=== PATIENT | male | born 1990 | race Hispanic/Latino ===

== ENCOUNTER → 2022-02-24 13:46 | Outpatient (CLI) | payer OTHER, SELFPAY ==
[2022-02-24 14:51] LABS: COVID19 -Nasal RAPID Negative (Negative)
== END ==
PROVIDERS: Visit Provider Surgery
DX: Z01.812 Encounter for preprocedural laboratory examination (principal); Z20.822 Contact with and (suspected) exposure to COVID-19
CPT/HCPCS: 87635; C9803

== ENCOUNTER 2022-02-27 09:56 | Day surgery (SDC) | payer OTHER, SELFPAY ==
--- NOTE | 2022-02-27 | PATH_ITS ---
[facility] Accession Number: [id number] . 01 Material submitted: . PART A: duodenum - DUODNEUM PART B: stomach - ANTRUM PART C: colon - RANDOM COLON . 01 Diagnosis: A. Duodenum, Biopsy: Small bowel mucosa with no diagnostic abnormality. Negative for active inflammation, dysplasia, and malignancy. . B. Antrum, Biopsy: Gastric antral mucosa with with mild chronic inflammation. Negatve for Helicobacter organisms by immunohistochemistry. Positive for a small focus of intestinal metaplasia. Negative for dysplasia or malignancy. . C. Random Colon: Colonic mucosa with no diagnostic abnormality. Negative for active, chronic, and microscopic colitis. Negative for dysplasia and malignancy. [facility] 03/03/2022 1451 Local . 01 Electronically signed: . Silvia Little MD, Pathologist NPI- [id number] . 01 Gross description: . Part A: DUODNEUM: Received in formalin are 4 fragment(s) of brownlee, soft tissue measuring 0.4 x 0.3 x 0.2 cm to 0.2 x 0.2 x 0.2 cm submitted entirely in 1 cassette(s) Part B: ANTRUM: Received in formalin is 1 fragment(s) of brownlee, soft tissue measuring 0.3 x 0.3 x 0.2 cm submitted entirely in 1 cassette(s) Part C: RANDOM COLON: Received in formalin are 3 fragment(s) of brownlee, soft tissue measuring 0.3 x 0.3 x 0.2 cm to 0.2 x 0.1 x 0.1 cm submitted entirely in 1 cassette(s) /QBJ 02/28/2022 0815 Local . 01 Microscopic: . B. An immunohistochemical stain was performed to evaluate for Helicobacter organisms and is negative. The control stain showed appropriate reactivity. . * This test was developed and its performance characteristics determined by [facility]. It has not been cleared or approved by the U.S. Food and Drug Administration. The FDA has determined that such clearance or approval is not necessary. This test is used for clinical purposes. It should not be regarded as investigational or for research. . 01 Pathologist provided ICD-10: R12, K06.8, K62.5, R19.7 . 01 CPT . 229029, 285841, 487175, [id number] Performed at: 01 [facility] [address] [place] [address], [place], [place] [id number] MD Jesús Dalal MD Phone: [phone]
[2022-02-27 10:20] VITALS: BP 138/84; PULSE 72; RESP 16; TEMP 36.6; O2SAT 96; BMI 35.9
[2022-02-27] MEDS: SODIUM CHLORIDE 0.9% 1,000 ML 150 ML IV (10:33)
--- NOTE | 2022-02-27 10:37 | PM.HP.1 ---
History of Present Illness History of Present Illness Date Patient Seen: 02/27/22 Time Patient Seen: 10:38 Chief complaint: SDC Narrative: I reviewed the office note from November 11, [address] Javier Black. No significant changes today. Patient History Medical History Bleeding gums Chronic diarrhea GERD (gastroesophageal reflux disease) Rectal bleeding Family & Social History Social History: household members spouse Tobacco & Substance use: Smoking Status Current every day smoker alcohol intake frequency a few times a month Substance Use Type does not use Meds Home Medications and Allergies Home Medications Medication Instructions Recorded Confirmed Type omeprazole 20 mg capsule,delayed 20 mg PO DAILY 02/24/22 02/27/22 History release Allergies Allergy/AdvReac Type Severity Reaction Status Date / Time nickel Allergy Rash, Verified 02/27/22 10:09 itchy, skin peeling Review of Systems Review of Systems ROS: Yes All systems reviewed with the patient and are negative except as otherwise documented Exam Vital Signs (past 8 hours): - 02/27/22 10:20 Temperature 97.8 F Pulse Rate 72 Respiratory Rate 16 Blood Pressure 138/84 Pulse Oximetry 96 Oxygen Delivery Method Room Air Const General: cooperative and comfortable Orientation: alert HENMT Head: normocephalic Ears: external ears normal Nose: external nose normal Face and sinus: normal facial exam Mouth: oral mucosae normal Eyes General: appearance normal, both eyes and all related structures Neck Neck: normal visual inspection Chest Chest: normal inspection of the chest Resp Effort & Inspection: normal respiratory effort Cardio Rate: regular rate GI Inspection: normal to inspection Skin General: no rashes or lesions noted and No jaundice Neuro General: patient alert and moves all extremities Cognition: normal cognition Speech: speech normal Extrem General: no pedal edema Psych Appearance: grossly normal Assessment & Plan Assessment & Plan narrative: This is a 31-year-old male with a chronic history of GERD, bad breath, diarrhea, intermittent rectal bleeding. EGD and colonoscopy are pursued today. Time Spent With Patient Critical Care time: I spent a total of [] minutes of critical care time on this patient's care today; this time is exclusive of procedural time.
--- NOTE | 2022-02-27 10:40 | PM.PREOP ---
Pre-operative Note COVID-19 COVID-19 status: Negative Result date/Date tested (Pos, Neg/Pending): 02/24/22 Criteria for continued procedure: Possibility delay results in more complex future surgery or treatment Interval Note History & Physical reviewed/Exam performed by Physician: Yes Changes to H&P: No ASA Class (for procedural sedation): II
--- NOTE | 2022-02-27 11:43 | PM.OP.EC ---
Operative Date/Time/Diagnoses Date of procedure: 02/27/22 Time of procedure: 11:43 Pre-op diagnosis: GERD bad breath diarrhea rectal bleeding Post-op diagnosis: same Procedure & Clinicians Study performed: EGD with biopsies and colonoscopy with biopsies Same procedure as scheduled: Yes Indications: GERD bad breath diarrhea rectal bleeding Surgeon: Chris Madrid Procedure Notes SCOAP/Timeout: Done Procedure in detail: After the risks and benefits were explained, written and verbal informed consent was obtained. The patient was brought into the procedure room and placed into the left lateral decubitus position. Please see nurse flame hardening machine setter notes for sedation details. The scope was introduced into the mouth through the bite block and advanced under direct visualization to the 2nd portion of the duodenum. The scope was slowly withdrawn carefully examining the mucosa for any defects or lesions. Retroflexed views were accomplished in the stomach. The stomach was decompressed, the scope was then removed from the patient who tolerated the procedure well. The patient was then turned around a digital rectal examination accomplished. No significant pathology appreciated. The scope was introduced into the rectum and advanced to the cecum as identified by the appendiceal orifice and ileocecal valve. The terminal ileum was interrogated. The scope was then slowly withdrawn to carefully examine the mucosa for any defects or lesions. Multiple direct views were made through the dentate line for exclusion of pathology the colon was decompressed scope removed from the patient who tolerated the procedure well. Adult colonoscope Bowel prep adequate Scope withdrawal time: 11 minutes Sedation minutes: 29 Complications: none Impression: 1. Duodenum: This was visually normal from the bulb through to the 2nd portion. Random biopsies were taken from D2 for exclusion of sprue. 2. Stomach: Patient had a mild gastropathy and biopsies were acquired from the antrum for exclusion of Helicobacter or other pathology. Otherwise retroflexed views of the LES were unremarkable. No ulcers no outlet obstruction no mass lesions appreciated throughout. 3. Esophagus: The squamocolumnar junction correlated with the top of the gastric folds. GE junction was at approximately 40 cm from the incisors. The patient had evidence of LA grade a erosive esophagitis. No stricturing no mass lesions. No suggestion of Barretts. The remainder of the esophagus was unremarkable. 4. Terminal ileum: This was visually within normal limits. No erosions no ulcerations no strictures. 5. Colon: No evidence of any macroscopic colitis throughout. No evidence of proctitis. There was some subtle mild colonic erythema throughout the mid colon of uncertain clinical significance. Random colon biopsies were acquired and bites were included from this location. No significant polyps mass lesions or additional pathology appreciated throughout. The patient had evidence of grade 1 internal hemorrhoids. Endoscopic diagnosis 1. Mild gastropathy 2. LA grade A erosive esophagitis. 3. Grade 1 hemorrhoids 4. Otherwise visually unremarkable colonoscopy and terminal ileoscopy. Post-procedure Plan for aftercare: 1. Await histopathology. 2. Consider increasing omeprazole to twice daily. 3. Follow up GI clinic with Dr. Javier Black. Disposition: PACU
[2022-02-27 11:45] VITALS: BP 120/80; PULSE 77; RESP 16; TEMP 36.2; O2SAT 94
[2022-02-27 11:50] VITALS: BP 126/80; PULSE 77; RESP 16; O2SAT 98
[2022-02-27 11:56] VITALS: BP 116/76; PULSE 80; RESP 16; O2SAT 96
[2022-02-27 12:19] VITALS: BP 122/72; PULSE 78; RESP 16; TEMP 36.4; O2SAT 98
== END 2022-02-27 12:19 | disposition home or self-care (01) ==
PROVIDERS: Referring Provider Internal Medicine Gastroenterology; Visit Provider Internal Medicine Gastroenterology
PROC: 0DJD8ZZ Inspection of Lower Intestinal Tract, Via Natural or Artificial Opening Endoscopic (ICD-10-PCS; CPT 45378; principal; 2022-02-27 11:00)
PROC: 0DJ08ZZ Inspection of Upper Intestinal Tract, Via Natural or Artificial Opening Endoscopic (ICD-10-PCS; CPT 43235; 2022-02-27 11:00)
DX: K62.5 Hemorrhage of anus and rectum (principal); R19.7 Diarrhea, unspecified; R19.6 Halitosis; K64.0 First degree hemorrhoids; K21.00 Gastro-esophageal reflux disease with esophagitis, without bleeding; K31.9 Disease of stomach and duodenum, unspecified; K29.50 Unspecified chronic gastritis without bleeding
CPT/HCPCS: 45380; 43239; J2250; J2704; J3010